=== PATIENT | female | born 1995 | race Hispanic/Latino ===

== ENCOUNTER 2021-06-11 21:52 | Inpatient (IN) | payer BC ==
[2021-06-12] MEDS ORDERED: Lidocaine 1.5% with EPINEPHrine 1:200,000 5 ML Amp ONE
[2021-06-12] MEDS ORDERED: Lidocaine 1% 10 ML MDV ONE
[2021-06-12] MEDS ORDERED: Nalbuphine 10 MG/1 ML Vial IVPUSH PRN (01:36)
[2021-06-12] MEDS ORDERED: Oxytocin/Lactated Ringers 10 UNIT/1,000 ML BAG IV SCH (01:45)
[2021-06-12] MEDS ORDERED: Sodium Chloride 0.9% 10 ML Syringe FLUSH PRN (01:53)
[2021-06-12] MEDS: Lactated Ringers 1,000 ML IV SCH ×3 (03:01→18:13)
[2021-06-12] MEDS ORDERED: Bupivacaine/fentaNYL/NS 100 ML Bag EPIDUR PRN (03:17)
[2021-06-12] MEDS ORDERED: ePHEDrine 50 MG/ML SDV IVPUSH PRN (03:17)
[2021-06-12] MEDS ORDERED: diphenhydrAMINE 50 MG/ML SDV IVPUSH PRN (03:17)
[2021-06-12] MEDS ORDERED: fentaNYL 100 MCG/2 ML SDV EPIDUR PRN (03:17)
[2021-06-12] MEDS: Oxytocin/Lactated Ringers 20 UNIT/1,000 ML BAG IV SCH ×2 (09:55→20:43)
[2021-06-12] MEDS: Sodium Chloride 0.9% 10 ML Syringe FLUSH SCH (18:44)
[2021-06-12] MEDS ORDERED: Benzocaine/Menthol 20%-0.5% Spray 78 GM Cannister TOP PRN (21:21)
[2021-06-12] MEDS ORDERED: Witch Hazel Medicated Pads 40/Jar TOP PRN (21:21)
[2021-06-13] MEDS: Sodium Chloride 0.9% 10 ML Syringe FLUSH SCH (00:30)
[2021-06-13] MEDS: Ibuprofen 600 MG Tab PO PRN ×3 (02:22→21:00)
[2021-06-13] MEDS: Acetaminophen 325 MG Tab PO PRN ×2 (04:55→15:29)
[2021-06-14] MEDS: Ibuprofen 600 MG Tab PO PRN (06:33)
[2021-06-14] MEDS: Acetaminophen 325 MG Tab PO PRN (10:02)
== END 2021-06-14 10:53 | disposition home or self-care (01) | DRG 560 ==
LOC: UNDOADMOB 21:52 → JD.OB 21:52 → OBSVTOIN 06-12 20:08 → JD.OB 06-12 20:08 → INTOOBSV 06-12 20:27 → OBSVTOIN 06-12 20:27 → JD.OB 06-12 21:25
PROVIDERS: ADMIT Obstetrics & Gynecology; ATTEND Obstetrics & Gynecology
PROC: 10E0XZZ Delivery of Products of Conception, External Approach (ICD-10-PCS; principal; 2021-06-12)
PROC: 10907ZC Drainage of Amniotic Fluid, Therapeutic from Products of Conception, Via Natural or Artificial Opening (ICD-10-PCS; 2021-06-12)
PROC: 3E033VJ Introduction of Other Hormone into Peripheral Vein, Percutaneous Approach (ICD-10-PCS; 2021-06-12)
PROC: 0UQGXZZ Repair Vagina, External Approach (ICD-10-PCS; 2021-06-12)
PROC: 10H07YZ Insertion of Other Device into Products of Conception, Via Natural or Artificial Opening (ICD-10-PCS; 2021-06-12)
PROC: 3E0R3BZ Introduction of Anesthetic Agent into Spinal Canal, Percutaneous Approach (ICD-10-PCS; 2021-06-12)
PROC: 00HU33Z Insertion of Infusion Device into Spinal Canal, Percutaneous Approach (ICD-10-PCS; 2021-06-12)
DX: O14.04 Mild to moderate pre-eclampsia, complicating childbirth (principal); Z37.0 Single live birth; O70.0 First degree perineal laceration during delivery; O24.429 Gestational diabetes mellitus in childbirth, unspecified control; O99.214 Obesity complicating childbirth; Z20.822 Contact with and (suspected) exposure to COVID-19; Z3A.38 38 weeks gestation of pregnancy; Z90.49 Acquired absence of other specified parts of digestive tract
CPT/HCPCS: 01967; 36415; 51701; 51702; 59025; 59409; 81001; 82565; 82570; 82947; 83615; 84156; 84450; 84460; 84520; 84550; 85025; 86592; 86850; 86900; 86901; A9270-GY; J2590; J3010; J7120; U0002